=== PATIENT | male | born 1985 | race Caucasian/White ===

== ENCOUNTER 2025-03-25 10:13 | Emergency (ER) | payer OTHER ==
[2025-03-25] MEDS ORDERED: diphenhydrAMINE 50 MG/ML VIAL ONE (10:47)
[2025-03-25] MEDS ORDERED: Metoclopramide HCl 10 MG (2 mL) VIAL ONE (10:48)
[2025-03-25 11:28] LABS: ALT (SGPT) 208 U/L (Less than 45); AST (SGOT) 189 U/L (11-34); Albumin 4.9 g/dL (3.1-4.5); Alkaline Phosphatase 60 U/L (40-110); Anion Gap 23 mmol/L (10-20); BUN (Urea Nitrogen) 8 mg/dL (8.9-20.6); Bilirubin, Total 1.2 mg/dL (0.3-1.2); Calc. Creatinine Clearance 0 mL/min (70-130); Calcium 9.3 mg/dL (7.8-10.44); Carbon Dioxide 21 mmol/L (22-29); Chloride 97 mmol/L (98-107); Globulin 2.8 g/dL (2.4-3.5); Glucose 100 mg/dL (70-105); Lipase 17 U/L (8-78); Potassium 4.0 mmol/L (3.5-5.1); Sodium 137 mmol/L (136-145)
[2025-03-25 11:49] LABS: Hematocrit 37.9 % (42.0-52.0); Hemoglobin 14.4 g/dL (14.0-18.0); Mean Corpuscular Hemoglobin 34.5 pg (27.0-31.0); Mean Corpuscular Volume 90.8 fl (78.0-98.0); Platelet Count 220 10x3/uL (130-400); Red Blood Cell (RBC) Count 4.17 mill/uL (4.70-6.10); White Blood Cell (WBC) Count 3.1 10x3/uL (4.8-10.8)
== END 2025-03-25 12:06 | disposition home or self-care (01) ==
LOC: NAV ERS 10:13
DX: G43.119 Migraine with aura, intractable, without status migrainosus (principal); I10 Essential (primary) hypertension; F17.220 Nicotine dependence, chewing tobacco, uncomplicated
CPT/HCPCS: 80053; 83690; 85025; 96365; 96375; J1200; J2765; J7030